=== PATIENT | male | born 1970 | race Caucasian/White ===

== ENCOUNTER 2019-12-13 22:36 | Emergency (ER) | payer BC, SELFPAY ==
[2019-12-13 22:39] VITALS: BP 168/111; PULSE 93; RESP 16; TEMP 36.6; O2SAT 96
--- NOTE | 2019-12-13 23:02 | ED.GENADUL_ITS ---
Discharge Plan Disposition Patient Disposition: HOME Condition: Good Discharge Details Chief Complaint: GenMedical Clinical Impression: Hemorrhoid Primary Care Provider: Carmine Gomez ED Provider: Lencho Roberts Home Meds and New Rx's Prescriptions: New hydrocortisone acetate [Anusol-HC] 25 mg suppository 25 mg [place] DAILY Qty: 24 RF: 0 docusate sodium [Colace] 100 mg capsule 100 mg PO DAILY Qty: 20 RF: 0 Continued chlorthalidone 25 MG tablet 25 mg PO DAILY RF: 0 citalopram 20 MG tablet 10 mg PO DAILY RF: 0 Discharge Instructions Instructions: Hemorrhoids (ED) Additional Instructions: At this time I feel that you have a large hemorrhoid causing your pain. The ultrasound exam shows no evidence of abscess at this point. You may also have a small rectal fissure to causing your pain. Thankfully the treatment is relatively identical. Please take the Anusol suppository daily as directed. Take the Colace to help keep your bowels soft. Please go to local pharmacy and buy an [id number] sitz bath mixture and mix this with warm water and rest your rectal area and this 2-3 times per day for the next few days. If you do not notice improvement of your symptoms in the next 3 to 4 days I would recommend prompt reevaluation with your primary care provider. If you notice any worsening of your symptoms please return immediately. There is always a chance that something like this may develop into a small abscess or other abnormality requiring reevaluation. If you notice any worsening of your symptoms, or any new symptoms such as vomiting, diarrhea, fever, chills, shortness of breath, chest pain, numbness, weakness, or fainting , please return immediately to the emergency department for reevaluation. Please follow up with your primary care provider as soon as possible for reassessment and reevaluation. As always, it was a pleasure participating in your medical care today. Referrals: Carmine Gomez [Primary Care Provider] - Medical Decision Making 49-year-old male with no significant past medical history presents today for evaluation of rectal pain. Patient states that 5 days ago he had an extremely hard bowel movement, after that he has had moderate pain with every bowel movement. It is in the posterior aspect of his rectum. He denies any associated bleeding, he denies fever or chills. He states that he has had a problem with hemorrhoids in the past. Symptoms are made worse with sitting and bowel movements, improved by nothing. Current stools are moderate in consistency, not overly firm. Exam demonstrates evidence of multiple hemorrhoids and skin tags, does appear to be an internal hemorrhoid which is partially thrombosed, but not completely. Bedside ultrasound shows no evidence of cystic fluid collection or abscess at this time. Current recommendations will be for Anusol suppository, few Roxicodone's for home use for pain control tonight, NSAIDs, sitz bath's, stool softeners, close follow-up with PCP. I have extensively reviewed the treatment plan and discharge instructions with the patient. I have addressed all patient concerns at this time. The patient was made aware of what symptoms to monitor for that would warrant a return to the emergency department. Discussed the plan with the patient, they demonstrate verbal understanding and agreement with our assessment and plan at this time. HPI General Date/Time Provider Initiated Documentation: 12/13/19 22:39 . HPI Narrative: 49-year-old male with no significant past medical history presents today for evaluation of rectal pain. Patient states that 5 days ago he had an extremely hard bowel movement, after that he has had moderate pain with every bowel movement. It is in the posterior aspect of his rectum. He denies any associated bleeding, he denies fever or chills. He states that he has had a problem with hemorrhoids in the past. Symptoms are made worse with sitting and bowel movements, improved by nothing. Current stools are moderate in consistency, not overly firm. He denies any IV or illicit drug use, rectal inte rcourse. Related Data Home Medications Medication Instructions Recorded Confirmed chlorthalidone 25 mg PO DAILY 07/13/17 07/13/17 citalopram 10 mg PO DAILY 07/13/17 07/13/17 docusate sodium [Colace] 100 mg PO DAILY #20 cap 12/13/19 hydrocortisone acetate [Anusol-HC] 25 mg PA DAILY #24 each 12/13/19 Previous Rx's Medication Instructions Recorded docusate sodium [Colace] 100 mg PO DAILY #20 cap 12/13/19 hydrocortisone acetate [Anusol-HC] 25 mg PA DAILY #24 each 12/13/19 Allergies Allergy/AdvReac Type Severity Reaction Status Date / Time hydrocodone AdvReac Nausea Unverified 12/13/19 22:48 General Stated Complaint: GenMedical CATALINO: 4 Review of Systems All systems reviewed & are unremarkable except as noted in HPI and below PFSH Social History Do you feel safe at home: Yes Do you feel safe in your relationship?: Yes Exam Narrative Exam Narrative: 1.Const: Well-nourished, Well-developed, appearing stated age 2.Eyes: PERRL, no conjunctival injection, and symmetrical lids. 3.ENT: Atraumatic external nose and ears. Moist MM. Neck: Symmetric, trachea midline, No thyromegaly. 4.CVS: +S1/S2, No murmurs or gallops. Peripheral pulses 2+ and equal in all extremities. Brisk capillary refill in all extremities. 5.RESP: Unlabored respiratory effort. Clear to auscultation bilaterally. No wheezes rales or rhonchi 6.GI: Soft, Nontender/Nondistended, No hepatosplenomegaly. No guarding or rebound. Rectal exam was performed with female nurse at bedside. Multiple skin tags noted, as well as 2 small hemorrhoids, the posterior aspect of his rectum does demonstrate a small round firm tender nodule, which is palpable visualized, which I suspect to be a notably painful but not fully thrombosed hemorrhoid. Bedside ultrasound was performed of this area, there is no evidence of abscess, or large cystic structure. No evidence of large anal fissure. 7.MSK: Normocephalic/Atraumatic, Extremities w/o deformity or ttp No cyanosis or clubbing, Normal movement of all extremities 8.Skin: Warm, Dry. No rashes or lesions. 9.Neuro: dinkey engineer II-XII grossly intact. Sensation grossly intact, no focal neurologic deficits. 10.Psych: (AAO) x3. Appropriate mood and affect Course Vital Signs Vital signs: Vital Signs Temperature 36.6 C 12/13/19 22:39 Pulse 93 H 12/13/19 22:39 Respiratory Rate 16 12/13/19 22:39 Blood Pressure 168/111 H 12/13/19 22:39 Pulse Oximetry 96 12/13/19 22:39 Temperature 36.6 C 12/13/19 22:39 Temperature Source Skin 12/13/19 22:39 Pulse 93 H 12/13/19 22:39 Respiratory Rate 16 12/13/19 22:39 Respiratory Effort Non-Labored 12/13/19 23:00 Respiratory Depth Normal 12/13/19 23:00 Respiratory Pattern Normal 12/13/19 23:00 Blood Pressure 168/111 H 12/13/19 22:39 Blood Pressure Position Standing 12/13/19 22:39 Pulse Oximetry 96 12/13/19 22:39 Oxygen Delivery Method Room Air 12/13/19 22:39 Oxygen Flow Rate 0 12/13/19 22:39 Pain Level 10 12/13/19 22:39
[2019-12-13] MEDS: Hydrocortisone 25 MG SUPP PR (23:17)
--- NOTE | 2019-12-13 23:19 | NUR.NOTE ---
Nursing Note: Dr. Roberts put in an order for hydrocodone/APAP for the patient to take home for home use, once advised the patient had nausea, diarrhea from them he changed the order. The take home bottle was removed from the pixis, and then returned once the order was changed.
== END 2019-12-13 23:25 | disposition home or self-care (01) ==
LOC: ER 23:32
PROVIDERS: Emergency Provider Student in an Organized Health Care Education/Training Program; PCP Family Medicine
DX: K64.4 Residual hemorrhoidal skin tags (principal)
CPT/HCPCS: 99283

== ENCOUNTER 2019-12-14 09:53 | Emergency (ER) | payer BC, SELFPAY ==
[2019-12-14 09:59] VITALS: BP 143/83; PULSE 78; RESP 18; TEMP 36.7; O2SAT 98
--- NOTE | 2019-12-14 10:09 | ED.GENADUL_ITS ---
Discharge Plan Disposition Patient Disposition: HOME Condition: Stable Discharge Details Chief Complaint: GenMedical Clinical Impression: Hemorrhoid Primary Care Provider: Anson Guevara ED Provider: Stevie Rivas Home Meds and New Rx's Prescriptions: New lidocaine 5 % cream 1 applic TP TID PRNQty: 30 RF: 0 Continued chlorthalidone 25 MG tablet 25 mg PO DAILY RF: 0 citalopram 20 MG tablet 10 mg PO DAILY RF: 0 hydrocortisone acetate [Anusol-HC] 25 mg suppository 25 mg [place] DAILY Qty: 24 RF: 0 docusate sodium [Colace] 100 mg capsule 100 mg PO DAILY Qty: 20 RF: 0 Discharge Instructions Instructions: Hemorrhoids (ED) Additional Instructions: you can take 1000mg tylenol and 600mg ibuprofen every 6 hours for pain as needed You have an appointment with the general surgeon Dr. Bass Saturday 12/16 at 3:30 return if you have significant bleeding, fevers, abdominal pain or vomit Medical Decision Making 49 yo male comes in with continues rectal pain since Tuesday. Was seen yesterday and diagnosed with hemorrhoid and started on topical hydrocortisone and stool softeners. Started the topical but hasn't started the stool softeners. CAme in today for continued pain. Denies abdominal pain, fevers, chills, chest pain rectal bleeding. On exam has soft nontender abdomen. On rectal exam has a 2cm hemorrhoid at the 12 oclock position, no bleeding heme neg stools, and his only painful area is right over the hemorrhoid so doubt other diagnoses such as abscess. Will start lidocaine and also give toradol. Will also refer to gen surgery Differential Diagnosis Differential Diagnosis: external hemorrhoid, anal fissure HPI General Mode of arrival: ambulatory . Date/Time Provider Initiated Documentation: 12/14/19 09:55 . Limitations to Documentation: no limitations . Information obtained by: patient . History of Present Illness 49 year old M presents to the emergency department with the chief complaint of rectal pain, described as moderate, No relieving factors improve symptom(s), No exacerbating factors reported . Patient did receive the following treatments prior to arrival, none Related Data Home Medications Medication Instructions Recorded Confirmed chlorthalidone 25 mg PO DAILY 07/13/17 07/13/17 citalopram 10 mg PO DAILY 07/13/17 07/13/17 docusate sodium [Colace] 100 mg PO DAILY #20 cap 12/13/19 hydrocortisone acetate [Anusol-HC] 25 mg [place] DAILY #24 each 12/13/19 lidocaine 1 applic TP TID PRN #30 gm 12/14/19 Previous Rx's Medication Instructions Recorded docusate sodium [Colace] 100 mg PO DAILY #20 cap 12/13/19 hydrocortisone acetate [Anusol-HC] 25 mg [place] DAILY #24 each 12/13/19 lidocaine 1 applic TP TID PRN #30 gm 12/14/19 Allergies Allergy/AdvReac Type Severity Reaction Status Date / Time hydrocodone AdvReac Nausea Unverified 12/13/19 22:48 General Stated Complaint: GenMedical CATALINO: 4 Review of Systems All systems reviewed & are unremarkable except as noted in HPI and below Constitutional Constitutional: Denies chills, Denies fever(s) and Denies weakness Cardiovascular Cardiovascular: Denies chest pain and Denies dyspnea Respiratory Respiratory: Denies cough and Denies dyspnea Gastrointestinal Gastrointestinal: Denies abdominal pain, Denies nausea and Denies vomiting Musculoskeletal Musculoskeletal: Denies joint swelling Neurologic Neurologic: Denies weakness Psychiatric Psychiatric: Denies depression [facility]LY [facility] Social History Smoking/Tobacco Use Status: Never Alcohol Intake: never Drug use: Never Substance use type: does not use Do you feel safe at home: Yes Do you feel safe in your relationship?: Yes Exam Const General: no acute distress Orientation: alert HENMT Head: normal to inspection Ears: external ears normal General nose exam: external nose normal Mouth: moist mucous membranes Eyes General: appearance normal, both eyes and all related structures Neck Neck: normal visual inspection Resp Effort & Inspection: normal respiratory effort and able to speak in complete sentences Cardio Rate: regular rate GI Palpation: soft Rectal Exam: No heme positive stool and hemorrhoids Skin General skin exam: no rashes or lesions noted Neuro General: patient alert and patient oriented x3 Extrem General: normal to inspection Psych Mental Status: mental status grossly normal Course Vital Signs Vital signs: Vital Signs Temperature 36.7 C 12/14/19 09:59 Pulse 78 12/14/19 09:59 Respiratory Rate 18 12/14/19 09:59 Blood Pressure 143/83 H 12/14/19 09:59 Pulse Oximetry 98 12/14/19 09:59 Temperature 36.7 C 12/14/19 09:59 Temperature Source Tympanic 12/14/19 09:59 Pulse 78 12/14/19 09:59 Respiratory Rate 18 12/14/19 09:59 Respiratory Effort Non-Labored 12/14/19 10:01 Blood Pressure 143/83 H 12/14/19 09:59 Blood Pressure Position Sitting 12/14/19 09:59 Pulse Oximetry 98 12/14/19 09:59 Oxygen Delivery Method Room Air 12/14/19 09:59 Oxygen Flow Rate 0 12/14/19 09:59 Pain Level 10 12/14/19 09:59
[2019-12-14] MEDS: Ketorolac 30 MG/ML VIAL IM (10:19)
[2019-12-14 10:54] VITALS: RESP 16
== END 2019-12-14 10:18 | disposition home or self-care (01) ==
PROVIDERS: Emergency Provider Emergency Medicine; PCP Family Medicine
DX: K64.4 Residual hemorrhoidal skin tags (principal)
CPT/HCPCS: 96372; 99284; 99283; J1885

== ENCOUNTER 2019-12-15 08:11 | Emergency (ER) | payer BC, SELFPAY ==
[2019-12-15 08:15] VITALS: BP 142/72; PULSE 83; RESP 16; TEMP 36.1; O2SAT 97
--- NOTE | 2019-12-15 08:28 | ED.GENADUL_ITS ---
Discharge Plan Disposition Patient Disposition: HOME Condition: Good Discharge Details Chief Complaint: Abd Prob Clinical Impression: Hemorrhoid Primary Care Provider: Anson Guevara ED Provider: Stacie Neville Home Meds and New Rx's Prescriptions: Continued chlorthalidone 25 MG tablet 25 mg PO DAILY RF: 0 citalopram 20 MG tablet 10 mg PO DAILY RF: 0 lidocaine 5 % cream 1 applic TP TID PRNQty: 30 RF: 0 hydrocortisone acetate [Anusol-HC] 25 mg suppository 25 mg [place] DAILY Qty: 24 RF: 0 docusate sodium [Colace] 100 mg capsule 100 mg PO DAILY Qty: 20 RF: 0 atorvastatin 40 mg tablet 40 mg PO DAILY RF: 0 metformin 500 mg tablet extended release 24 hr 500 mg PO BID RF: 0 Discharge Instructions Instructions: Hemorrhoids (DC) Additional Instructions: Please continue with current regimen of topical lidocaine, Anusol. Please continue with Tylenol and/or Ibuprofen for discomfort. You may next dose ibuprofen at 3pm. Encourage water intake. Please continue with stool softener. Call general surgery as previously advised on Tuesday. If you develop fevers/chills, increased swelling or other new/worsening symptoms please seek care urgently once again. Referrals: Anson Guevara [Primary Care Provider] - Discharge Data Discharge Date/Time-TO BE ENTERED AT DEPARTURE: 12/15/19 09:52 Medical Decision Making Patient is a pleasant 49-year-old gentleman presenting once again for hemorrhoid. He has been seen here over the past 2 days as well with same complaint. Patient was diagnosed with a nonthrombosed hemorrhoid. He was initially treated with Anusol suppository, Colace and oxycodone. This did not help much with the patient's discomfort presented again yesterday with the same chief complaint. At that time, 5% lidocaine cream was added to this. Patient states that he is been performing sitz bath every few hours, has been using the Lidoderm cream and suppositories. He has been using Tylenol to help with discomfort. Despite this, has not had improvement. He was given one-time dose of Toradol yesterday which he states gave him a 4-hour time of relief. He is requesting the same once again and would like further options to help with discomfort. Reevaluation, the patient has a 2 cm nonthrombosed hemorrhoid at the 12 o'clock position. The area of hemorrhoid along the rectal side, abutting the gluteal fold, does have a white plaque on the top. This does have well-defined borders. Surrounding tissue is not erythematous. I do not see evidence of infection. I am questioning if this associate with the medications the patient's been prescribed. Dr. Torres to evaluate this as well and agrees that is not appear to be associated with abscess does not appear thrombosed. The discolored area is most consistent with associated withtopical medications. Secondary to his discomfort, I was unable to perform a rectal exam. Consulted with Dr. Bass. She advised against procedure for this. Advised that patient needs to get over the hump. She encourage that he continue with sits baths, lidocaine. She advised that surgery would likely prolong his current recovery time and that, based on my described exam, he did not need it at this point. I discussed this with the patient. He is feeling improved after IM Toradol. Patient was given return precautions. He will call surgery on Tuesday. A referral has already been sent. All of his questions and concerns were addressed and he is in agreement this plan. Reiterated sits baths, topical treatments, or [id number] medications that he may use to help with his discomfort. HPI General Mode of arrival: ambulatory . Date/Time Provider Initiated Documentation: 12/15/19 08:28 . Limitations to Documentation: no limitations . Information obtained by: patient and RN notes reviewed . History of Present Illness 49 year old M presents to the emergency department with the chief complaint of hemorrhoid, described as severe, with intensity rated at 10. Quality is described as burning, and is localized to the buttocks. Patient reports no radiation. Patient started experiencing this day(s) (7) and it has been constant. Medication improves symptom(s), (received toradol with great relief) Other factors that worsen symptoms (BM) . Patient notes denies diaphoresis, fever/chills, loss of appetite, nausea/vomiting and weakness. Patient did receive the following treatments prior to arrival, other (tylenol) Related Data Home Medications Medication Instructions Recorded Confirmed chlorthalidone 25 mg PO DAILY 07/13/17 12/15/19 citalopram 10 mg PO DAILY 07/13/17 12/15/19 docusate sodium [Colace] 100 mg PO DAILY #20 cap 12/13/19 12/15/19 hydrocortisone acetate [Anusol-HC] 25 mg [place] DAILY #24 each 12/13/19 12/15/19 lidocaine 1 applic TP TID PRN #30 gm 12/14/19 12/15/19 atorvastatin 40 mg PO DAILY 12/15/19 12/15/19 metformin 500 mg PO BID 12/15/19 12/15/19 Previous Rx's Medication Instructions Recorded docusate sodium [Colace] 100 mg PO DAILY #20 cap 12/13/19 hydrocortisone acetate [Anusol-HC] 25 mg [place] DAILY #24 each 12/13/19 lidocaine 1 applic TP TID PRN #30 gm 12/14/19 Allergies Allergy/AdvReac Type Severity Reaction Status Date / Time hydrocodone AdvReac Nausea Unverified 12/15/19 08:20 General Stated Complaint: Abd Prob CATALINO: 4 Review of Systems Constitutional Constitutional: Reports as per HPI, Denies chills, Denies fatigue, Denies fever(s) and Denies headache(s) ENT Ears, Nose, Mouth, and Throat: Denies headache(s) Cardiovascular Cardiovascular: Reports as per HPI, Denies chest pain and Denies dyspnea Respiratory Respiratory: Reports as per HPI, Denies cough and Denies dyspnea Gastrointestinal Gastrointestinal: Reports as per HPI Genitourinary Genitourinary: Denies system reviewed and no additional complaints, except as documented (patient denies any change in urinary habits) Musculoskeletal Musculoskeletal: Reports as per HPI and Denies back pain Integumentary/Breasts Skin/Breast: Reports as per HPI and Denies rash Neurologic Neurologic: Reports as per HPI and Denies headache(s) Endocrine Endocrine: Denies fatigue [facility] Social History Smoking/Tobacco Use Status: Never Alcohol Intake: never Drug use: Never Substance use type: does not use Do you feel safe at home: Yes Do you feel safe in your relationship?: Yes Exam Const General: cooperative, healthy appearing, comfortable, no acute distress and well developed Nutritional Appearance: well nourished and overweight Orientation: alert and awake HENMT Head: normal to inspection Mouth: moist mucous membranes Resp Effort & Inspection: normal respiratory effort, able to speak in complete senten ankit and no respiratory distress Cardio Rate: regular rate Rhythm: regular rhythm GI Inspection: normal to inspection Palpation: soft, no hepatosplenomegaly, no masses, not rigid and nontender Rectal Exam: hemorrhoids (2cm hemorrhoid, not thrombosed) and tenderness (over hemorrhoid) Skin General skin exam: no rashes or lesions noted Trauma: no lacerations or abrasions Neuro General: patient alert and patient awake Cognition: normal cognition Speech: speech normal Gait: normal gait Psych Appearance: grossly normal and well kempt Mental Status: mental status grossly normal Speech and Movement: speech and movement normal Course Vital Signs Vital signs: Vital Signs Temperature 36.1 C L 12/15/19 08:15 Pulse 83 12/15/19 08:15 Respiratory Rate 16 12/15/19 08:15 Blood Pressure 142/72 H 12/15/19 08:15 Pulse Oximetry 97 12/15/19 08:15 Temperature 36.1 C L 12/15/19 08:15 Temperature Source Skin 12/15/19 08:15 Pulse 83 12/15/19 08:15 Respiratory Rate 16 12/15/19 08:15 Respiratory Effort Non-Labored 12/15/19 08:15 Blood Pressure 142/72 H 12/15/19 08:15 Blood Pressure Position Sitting 12/15/19 08:15 Pulse Oximetry 97 12/15/19 08:15 Oxygen Delivery Method Room Air 12/15/19 08:15 Oxygen Flow Rate 0 12/15/19 08:15 Pain Level 10 12/15/19 08:15
[2019-12-15] MEDS: Ketorolac 60 MG/2 ML VIAL IM (08:49)
[2019-12-15 09:33] VITALS: BP 138/87; PULSE 77; RESP 18; TEMP 36.4; O2SAT 100
== END 2019-12-15 09:52 | disposition home or self-care (01) ==
PROVIDERS: Emergency Provider Physician Assistant; PCP Family Medicine
DX: K64.4 Residual hemorrhoidal skin tags (principal)
CPT/HCPCS: 96372; 99284; 99283; J1885

== ENCOUNTER 2021-09-30 09:28 | Outpatient (CLI) | payer BC, SELFPAY ==
--- NOTE | 2021-09-30 06:00 | DI.RAD_ITS ---
Exam(s) XR PAIN CLINIC LUMBAR SP 2V EXAM: XR PAIN CLINIC LUMBAR SP 2V CLINICAL HISTORY: Dx:Lumbar Spondylosis TECHNIQUE: 2D and realtime digital imaging was performed. COMPARISON: No exams were available for comparison FINDINGS: C-arm fluoroscopy was utilized by Dr. Quiroga during reported T5 through T7 blocks. Hard copies show ne edle placement bilaterally in midthoracic region. IMPRESSION: RADIATION DOSE DELIVERED: Stevenr=31.98 mGy
[2021-09-30 09:53] VITALS: BP 134/95; PULSE 82; RESP 18; TEMP 36.6; O2SAT 97
[2021-09-30] MEDS: Bupivacaine 0.5% Pres-Free 30 ML VIAL IJ (10:23)
[2021-09-30] MEDS: Omnipaque 240 MG/ML 50 ML BTL IJ (10:26)
--- NOTE | 2021-09-30 10:28 | PDOC.PAIN ---
Pain Clinic Procedure Note Procedure Note Procedure Note: Thoracic Medial Branch Blocks CHAD Barbosa ALEX has been referred to the [facility] for thoracic medial branch blocks. COMMENTS: I evaluated the patient on 07/22/21. His pre-procedure pain VAS was 9/10. DX: Thoracic spondylosis without myelopathy Patient was interviewed and the medical record reviewed. There were no medical, pharmacologic, radiographic or other structural contraindications to attempting fluoroscopically guided local anesthetic thoracic medial branch blocks. Risks and expected side effects as well as potential benefit of the procedure were reviewed and voiced concerns addressed. The printed consent form was signed and witnessed. Standard time-out procedure was performed. Patient was placed in the prone position on the fluoroscopy table and automated blood pressure cuff and pulse oximeter applied. The skin entry points for approaching the anatomic target points of the segmental medial branches of bilateral T5-T7 were identified with anfluoroscopy and marked. Following thorough Chlorhexadine preparation of the skin and draping and 1% lidocaine infiltration of the skin entry points and subcutaneous tissues, a 25 gauge 3.5 spinal needle was placed under fluoroscopic guidance down on to the target point for each respective segmental medial branch.Position was confirmed in A/P, oblique and lateral views with 0.25ml of omnipaque 240. At this point, 0.5ml 0.5% Bupivacaine was injected at each segmental nerve. The needles were removed without difficulty. Vital signs were stable throughout the procedure and were as recorded in the docflowsheet by the nursing staff. Follow up plans and appointments were discussed and was instructed to keep careful note of how the usual pain was modified by these injections. Specifically was asked to keep a pain diary for the next 4 hours using a numeric pain scale of 0-10 and report these results at the follow-up visit. Post procedure instruction was given as documented in the nursing documentation and having met discharge criteria. Patient was discharged from the [facility] Management Center. Based on the medial branches blocked today, if the patient has adequate relief and we are able to proceed to radiofrequency ablation, the treatment should result in the denervation of the bilateral T6-T7 and T7-T8 FACET JOINTS]. We would expect to denervate a total of 4 facets during the radiofrequency ablation. COMMENTS: Pre-procedure pain VAS was 4/10. Chad Quiroga DO, MPH [facility]-Pain Management [facility] for [facility] Management CC: Anson Guevara
[2021-09-30 10:29] VITALS: BP 154/84; PULSE 77; RESP 17; O2SAT 99
== END 2021-09-30 09:29 | disposition home or self-care (01) ==
LOC: PC 09:29
PROVIDERS: PCP Family Medicine; Visit Provider Preventive Medicine Occupational Medicine
DX: M47.814 Spondylosis without myelopathy or radiculopathy, thoracic region (principal)
CPT/HCPCS: 64490; 64491; 72100; Q9967

== ENCOUNTER 2022-02-23 17:03 | Emergency (ER) | payer BC, SELFPAY ==
[2022-02-23 17:09] VITALS: BP 83/56; PULSE 108; RESP 17; TEMP 36.7; O2SAT 97
[2022-02-23 17:13] VITALS: RESP 16
--- NOTE | 2022-02-23 17:15 | RT.EKG_ITS ---
APPROVED REPORT Exam: Resting ECG Reason for Exam: dizzy Patient Location: E HR:100 bpm ECG Measurements Heart Rate 100 AXIS MD [id number] P [id number] QRSd 167 QRS 104 QT 457 T -37 QTc 588 Conclusion Junctional tachycardia...absent P waves, rapid V-rate RBBB and LPFB...QRSd >120mS, axis(90,210) ST elevation secondary to IVCD...Multiple VCG criteria
[2022-02-23 18:36] VITALS: BP 111/72; PULSE 79; TEMP 36.4; O2SAT 99
--- NOTE | 2022-02-23 19:10 | W.ED.GENAD ---
Discharge Plan Disposition Patient Disposition: HOME Condition: Improving Discharge Details Clinical Impression: Hyponatremia Primary Care Provider: Anson Guevara ED Provider: Red Sarabia Home Meds and New Rx's Prescriptions: New doxycycline monohydrate 100 mg capsule 100 mg PO BID 28 Days Qty: 56 0RF Continued citalopram 20 mg tablet 20 mg PO DAILY lisinopril 20 mg tablet 20 mg PO DAILY acetaminophen [Tylenol Extra Strength] 500 mg tablet 1,000 mg PO BID PRN Januvia 100 mg tablet 100 mg PO DAILY (DME) FreeStyle Kevin 14 Day [place] Misc See Rx Instructions .ROUTE .MEDSUPPLY Qty: 1 Rx Instructions: As directed sildenafil (pulm.hypertension) 20 mg tablet 20 mg PO ONCE PRN (Reason: sexual activity) Label Comments: take 3-4 tabs prn prior to sexual activity Rx Instructions: administer doses at least 4-6 hours apart Jardiance 25 mg tablet 25 mg PO DAILY oxycodone 5 mg capsule 5 mg PO DAILY pregabalin 150 mg capsule 150 mg PO BID Qty: 60 5RF pregabalin 75 mg capsule 75 mg PO DAILY Qty: 10 0RF Rx Instructions: Just needs 10 caps to get through increase to 150mg BID from 75mg BID atorvastatin 40 mg tablet 40 mg PO DAILY Discharge Instructions Instructions: Hyponatremia (ED) Additional Instructions: Please follow-up with your doctor tomorrow as we discussed. As you have yet untreated Bartonella infection, I have prescribed a course of doxycycline. This will make you sensitive to sun. Return to ER for any acute concerns. May liberalize salt in your diet. Medical Decision Making <Rolf Cruz MD - Last Filed: 02/23/22 20:02> Patient with multiple complaints. He has had history of syncopal episodes associated with weakness in the past. He has had multiple work-ups. He has also had heart block Reason for which he has a pacemaker. He has a history of a heart block in the past. Today he presents with a junctional tachycardia 100. He has morphology consistent with right bundle branch block and a left posterior fascicular block. He has pain-free from a cardiac perspective. His respiratory status is fine. He will have CBC and chemistries checked. Given that he is a diabetic and believe that he requires serial troponins. In the meanwhile he will begin some IV hydration. He will be signed out to my colleague Dr. Sarabia. <Red Sarabia MD - Last Filed: 02/23/22 21:02> Lab Data Lab results reviewed: Yes I reviewed the patient's lab results. Labs: Received signout from Dr. Cruz. Please see his note regarding details of the presentation, exam and plan of care. Patient's sodium level returned slightly low at 135. He is improved following fluids. He has lost 100 pounds recently, was recently diagnosed with a Bartonella infection and has been attempting homeopathic remedies. He previously had had heart block requiring pacemaker placement and tested negative for Lyme disease. He questions treatment of Bartonella which I do feel is reasonable. Discussed with him the use of doxycycline. He will follow-up with his regular doctor for recheck. Laboratory Results - last 24 hr 02/23/22 02/23/22 19:13 19:13 WBC 6.02 RBC 5.06 Hgb 14.6 Hct 42.0 MCV 83 MCH 28.9 MCHC 34.8 RDW 12.2 Plt Count 274 MPV 10.0 Sodium 135 L Potassium 3.9 Chloride 98 Carbon Dioxide 29.3 Anion Gap 7.7 BUN 16 Creatinine 0.8 Estimated GFR/1.73 m2 >= 60.00 Glucose 156 H Calcium 8.7 Total Bilirubin 0.6 AST 11 L ALT 16 Alkaline Phosphatase 43 L Troponin I < 50 Total Protein 6.9 Albumin 3.7 TSH 0.57 HPI <Rolf Cruz MD - Last Filed: 02/23/22 20:02> General Date/Time Provider Initiated Documentation: 02/23/22 19:10. HPI Narrative: 52-year-old presents to the emergency department for evaluation of dizziness and weakness. He has been having the symptoms intermittently for the past year and a half. Approximately a year ago he developed some atypical pain surrounding his umbilicus that coincided with his second COVID vaccination. Although the clinical picture was confusing at the time, many of the symptoms were consistent with shingles and as such she was treated for shingles with antivirals. This did nothing to his pain. The pain surrounding his umbilicus then spread to bilateral abdominal [place], at no point that he developed any rash. Since development of her symptoms, he has also developed some atypical bilateral rib pain. 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 He has been seen multiple times by his primary care doctor and neurology and treated with various medications. Approximately a year ago he developed a heart block. At that time she was tested for tickborne diseases. The results were negative. He ended up having a pacemaker implanted. He has seen multiple specialists for the symptoms and he still does not have the diagnosis. He presents to the emergency department seeking a second opinion tonight. Furthermore, over the course of the past year he has lost over 100 pounds. He has been dealing with intermittent episodes of hypotension reason for which he was taken off his lisinopril. He is also not insulin-dependent diabetic. He tells me that he wants to talk to his doctor regarding stopping his diabetic medications because he believes he does not need them anymore. His glycemias have been fine. He presents today for another episode of postural hypotension. He states that he 3. He believes that some IV saline therapy will help. He has been undergoing hyperbaric medicine therapy for his symptoms. He is also being seen by a homeopathic doctor who has recommended total homeopathic medication because his Bartonella test came back Related Data Home Medications Medication Instructions Recorded Confirmed atorvastatin 40 mg tablet 40 mg PO DAILY 12/15/19 02/23/22 acetaminophen 500 mg tablet 1,000 mg PO BID PRN 05/13/21 02/23/22 (Tylenol Extra Strength) citalopram 20 mg tablet 20 mg PO DAILY 05/13/21 02/23/22 flash glucose scanning reader #1 ea 05/13/21 02/23/22 (FreeStyle Kevin 14 Day [place]) lisinopril 20 mg tablet 20 mg PO DAILY 05/13/21 02/23/22 sildenafil (pulm.hypertension) 20 20 mg PO ONCE PRN sexual activity 05/13/21 02/23/22 mg tablet sitagliptin 100 mg tablet (Januvia) 100 mg PO DAILY 05/13/21 02/23/22 empagliflozin 25 mg tablet 25 mg PO DAILY 12/15/21 02/23/22 (Jardiance) oxycodone 5 mg capsule 5 mg PO DAILY 12/15/21 02/23/22 pregabalin 150 mg capsule 150 mg PO BID #60 caps 12/15/21 02/23/22 pregabalin 75 mg capsule 75 mg PO DAILY #10 caps 12/21/21 02/23/22 doxycycline monohydrate 100 mg 100 mg PO BID 4 weeks #56 caps 02/23/22 capsule Previous Rx's Medication Instructions Recorded pregabalin 150 mg capsule 150 mg PO BID #60 caps 12/15/21 pregabalin 75 mg capsule 75 mg PO DAILY #10 caps 12/21/21 doxycycline monohydrate 100 mg 100 mg PO BID 4 weeks #56 caps 02/23/22 capsule Allergies Allergy/AdvReac Type Severity Reaction Status Date / Time apple Allergy Verified 02/23/22 17:21 Fish Containing Products Allergy Verified 02/23/22 17:21 shellfish derived Allergy Verified 02/23/22 17:21 hydrocodone AdvReac Nausea Verified 02/23/22 17:21 General Stated Complaint: Dizzy/Sync CATALINO: 3 Review of Systems <Rolf Cruz MD - Last Filed: 02/23/22 20:02> Narrative: Constitutional negative for fever and chills positive for malaise and fatigue HEENT negative Cardiovascular no palpitations no chest pressure Respiratory no shortness of breath, no cough Gastrointestinal adequate appetite has been eating more, no abdominal pain, no vomiting however he does have intermittent episodes of nausea good urinary output MSK see HPI Skin no rashes, see HPI Neuro see HPI Psych no anxiety no depression Hematological not easy to bleed not on blood thinners Endocrine see HPI PFSH <Rolf Cruz MD - Last Filed: 02/23/22 20:02> All Active Problems (Updated 02/23/22 @ 21:00 by Red Sarabia MD) Hyponatremia (Acute) Diabetic neuropathy (Acute) Thoracic spondylosis without myelopathy (Acute) Neuropathic pain (Acute) Medical History Chronic pain Diabetic retinopathy Erectile dysfunction Family history of diabetes mellitus Gingivitis H/O urinary frequency Heart block Heart block 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 Chest is clear to auscultation bilaterally Heart is regular rhythm and rate Abdomen soft nondistended nontender Skin no rashes Extremities no edema moving all 4 extremities Neuro grossly intact Neck is supple Back normal inspection Psych adequate mood and affect. Course <Rolf Cruz MD - Last Filed: 02/23/22 20:02> Vital Signs Vital signs: Vital Signs Temperature 36.7 C 02/23/22 17:09 Pulse 108 H 02/23/22 17:09 Respiratory Rate 17 02/23/22 17:09 Blood Pressure 83/56 L 02/23/22 17:09 Pulse Oximetry 97 02/23/22 17:09 Temperature 36.4 C L 02/23/22 18:36 Temperature Source Tympanic 02/23/22 18:36 Pulse 79 02/23/22 18:36 Respiratory Rate 16 02/23/22 17:13 Respiratory Effort Non-Labored 02/23/22 17:13 Respiratory Depth Normal 02/23/22 17:13 Respiratory Pattern Normal 02/23/22 17:13 Blood Pressure 111/72 02/23/22 18:36 Blood Pressure Position Sitting 02/23/22 17:09 Pulse Oximetry 99 02/23/22 18:36 Oxygen Delivery Method Room Air 02/23/22 18:36 Oxygen Flow Rate 0 02/23/22 18:36 Pain Level 8 02/23/22 18:36 Sign Out <Rolf Cruz MD - Last Filed: 02/23/22 20:02> Sign Out Data: Sign Out Comment: 49-year-old gentleman with episode of near syncope. He has had the symptoms in the past. Patient does have a pacemaker for heart block diagnosed over a year ago. At this time I believe it is prudent to check CBC and some electrolytes as well as troponin. If everything is normal after some IV hydration I believe that he is fine to discharge patient home with follow-up with his primary care doctor. Patient signed out to Dr. Sarabia. Last updated by Rolf Cruz MD at 02/23/22 19:56
[2022-02-23] MEDS: Normal Saline 1,000 ML 1000 ML IV (19:54)
[2022-02-23 19:55] VITALS: BP 115/73; PULSE 72; RESP 18; O2SAT 97
[2022-02-23 20:05] LABS: HGB 14.6 g/dL (13.5-17.5); MCH 28.9 pg (27.0-33.0); MCHC 34.8 % (32.0-36.0); MCV 83 fL (80-95); Platelet Count 274 10^3/uL (130-400); RBC 5.06 10^6/uL (4.36-5.78); RDW 12.2 % (11.8-14.1); RDW-SD 37.2 fL; WBC 6.02 10^3/uL (4.4-10.8)
[2022-02-23 20:32] LABS: ALT 16 U/L (16-63); AST 11 U/L (15-37); Albumin 3.7 g/dL (3.4-5.0); Alkaline Phosphatase 43 U/L (46-116); Anion Gap 7.7 mmol/L (3-11); BUN 16 mg/dL (7-18); Bilirubin, Total 0.6 mg/dL (0.2-1.0); CO2 29.3 mmol/L (21.0-32.0); CREATININE 0.8 mg/dL (0.70-1.30); Calcium 8.7 mg/dL (8.5-10.1); Chloride 98 mmol/L (98-107); Glucose 156 mg/dL (74-106); Potassium 3.9 mmol/L (3.5-5.1); Sodium 135 mmol/L (136-145); TSH 0.57 uIU/mL (0.36-3.74); Total Protein 6.9 g/dL (6.4-8.2); Troponin I < 50 ng/L (<or=60)
== END 2022-02-23 21:20 | disposition home or self-care (01) ==
PROVIDERS: Emergency Medicine; Emergency Provider Emergency Medicine; PCP Family Medicine
DX: E87.1 Hypo-osmolality and hyponatremia (principal); R00.0 Tachycardia, unspecified; I10 Essential (primary) hypertension; E11.9 Type 2 diabetes mellitus without complications
CPT/HCPCS: 80053; 85027; 93005; 96360; 99284; 84443; 84484; 93010

== ENCOUNTER 2022-03-04 15:32 | Outpatient (REF) | payer BC, SELFPAY ==
[2022-03-07 09:32] LABS: HIV-1/2 Ag & Ab Screen Negative (Negative)
== END 2022-03-04 15:33 | disposition home or self-care (01) ==
LOC: LBN 15:32
PROVIDERS: PCP Family Medicine; Visit Provider Family Medicine
DX: A44.0 Systemic bartonellosis (principal)
CPT/HCPCS: 87389

== ENCOUNTER 2022-03-26 19:38 | Outpatient (REF) | payer BC, SELFPAY ==
[2022-03-26 20:02] LABS: Bilirubin Negative (Negative); Blood Negative (Negative); Clarity Clear (Clear); Glucose 500 mg/dL (Negative); Ketones Trace mg/dL (Negative); Leukocyte Esterase Negative (Negative); Nitrite Negative (Negative); Urobilinogen 0.2 EU/dL (Up TO 0.2)
[2022-03-26 20:05] LABS: HCT 44.4 % (40.0-50.0); MCHC 33.8 % (32.0-36.0); MCV 86 fL (80-95); MPV 11.4 fL (8.0-11.0); Platelet Count 176 10^3/uL (130-400); RBC 5.17 10^6/uL (4.36-5.78); RDW 12.5 % (11.8-14.1); RDW-SD 39.5 fL; WBC 2.91 10^3/uL (4.4-10.8)
[2022-03-26 20:15] LABS: ALT 14 U/L (16-63); AST 12 U/L (15-37); Albumin 3.7 g/dL (3.4-5.0); Alkaline Phosphatase 57 U/L (46-116); Anion Gap 5.3 mmol/L (3-11); BUN 10 mg/dL (7-18); Bilirubin, Total 0.4 mg/dL (0.2-1.0); CO2 32.7 mmol/L (21.0-32.0); CREATININE 0.7 mg/dL (0.70-1.30); Chloride 100 mmol/L (98-107); Estimated GFR 110.18 (mL/min/1.73m2); Glucose 153 mg/dL (74-106); Potassium 3.9 mmol/L (3.5-5.1); Sodium 138 mmol/L (136-145); Total Protein 6.5 g/dL (6.4-8.2)
== END 2022-03-26 19:39 | disposition home or self-care (01) ==
LOC: LBN 19:38
PROVIDERS: PCP Family Medicine; Visit Provider Family Medicine
DX: N40.0 Benign prostatic hyperplasia without lower urinary tract symptoms (principal); G90.9 Disorder of the autonomic nervous system, unspecified
CPT/HCPCS: 80053; 85027; 81003; 84154